=== PATIENT | female | born 1985 | race Two or more races ===

== ENCOUNTER 2020-08-22 22:27 | Emergency (ER) | payer MEDICAID, OTHER ==
[~2020-08-22] VITALS: Ht 165.1 cm; Wt 108.9 kg
[2020-08-22 22:27] VITALS: BP 161/92
[2020-08-23] MEDS ORDERED: HYDROcodone-ACET 5/325MG TAB PO ONE (01:30)
== END 2020-08-23 03:31 | disposition home or self-care (01) ==
LOC: ER 22:27
DX: K02.9 Dental caries, unspecified (principal); K04.7 Periapical abscess without sinus; Z88.0 Allergy status to penicillin